=== PATIENT | female | born 2000 | race African-American/Black ===

== ENCOUNTER 2021-01-24 21:42 | Emergency (ER) | payer OTHER ==
[~2021-01-24] VITALS: Ht 165.1 cm; Wt 59.1 kg
[2021-01-24 22:11] VITALS: BP 127/77
[2021-01-25] MEDS ORDERED: IBUPROFEN 600 MG TABLET PO ONE (01:45)
== END 2021-01-25 02:18 | disposition home or self-care (01) ==
LOC: EMS 21:44
DX: S90.32XA Contusion of left foot, initial encounter (principal); W19.XXXA Unspecified fall, initial encounter; Y93.89 Activity, other specified; Y92.89 Other specified places as the place of occurrence of the external cause; Y99.8 Other external cause status
CPT/HCPCS: 99283